=== PATIENT | female | born 1980 | race Two or more races ===

== ENCOUNTER 2020-03-14 10:52 | Inpatient (IN) | payer MEDICAID, OTHER ==
[~2020-03-14] VITALS: Ht 172.7 cm; Wt 80.7 kg
--- NOTE | 2020-03-14 10:57 | NUR ---
[id number] FROM HOME FOR SEIZURE. HX OF SEIZURE. BG 102, TO ER BED 10, HOOKED TO MONITOR, CHANGED TO HOSP GOWN, WARM BLANKET PROVIDED. DR SIBLEY AT BEDSIDE
[2020-03-14 11:32] LABS: BASOPHILS # (AUTO) 0.1 /CMM (0.0-0.2); BASOPHILS % (AUTO) 0.6 % (0.0-2.0); EOSINOPHILS % (AUTO) 0.4 % (0.0-6.0); HEMATOCRIT 43 % (33-45); HEMOGLOBIN 14.5 g/dL (11.5-14.8); LYMPHOCYTES # (AUTO) 0.7 /CMM (0.8-4.8); LYMPHOCYTES % (AUTO) 7.3 % (20.0-44.0); MEAN CORPUSCULAR HGB CONC 34 g/dl (31.0-36.0); MEAN CORPUSCULAR VOLUME 88 fL (82-100); MONOCYTES # (AUTO) 0.4 /CMM (0.1-1.30); MONOCYTES % (AUTO) 4.1 % (2.0-12.0); NEUTROPHILS # (AUTO) 8.5 /CMM (1.8-8.9); NEUTROPHILS % (AUTO) 87.6 % (43.0-81.0); PLATELET COUNT (AUTO) 271 /CMM (150-450); RED BLOOD CELL COUNT(AUTO) 4.91 MIL/uL (4.0-5.2); WHITE BLOOD COUNT (AUTO) 9.7 K/uL (4.3-11.0)
[2020-03-14 11:40] LABS: CALCIUM, SERUM 8.5 mg/dL (8.5-10.1); CREATININE 0.7 mg/dL (0.6-1.3); POTASSIUM 3.7 mmol/L (3.5-5.1)
--- NOTE | 2020-03-14 12:20 | NUR ---
URINE SAMPLE COLLECTED AND SENT TO LAB
--- NOTE | 2020-03-14 12:59 | NUR ---
SEIZURE PRECAUTIONS APPLIED
[2020-03-14] MEDS ORDERED: LORAZEPAM INJ 2 MG/ML VIAL ONE (13:01)
--- NOTE | 2020-03-14 13:01 | NUR ---
PATIENT HAD SEIZURE EPISODE, DR SIBLEY AT BEDSIDE, 1MG ATIVAN IV STAT ORDERED, CARRIED OUT.
--- NOTE | 2020-03-14 13:23 | NUR ---
PICKED UP BY HEATING FIXTURE TENDER FOR CT SCAN
--- NOTE | 2020-03-14 13:26 | NUR ---
CALLED PHARMACY FOR KEPPRA 500MG IVPB.
[2020-03-14] MEDS ORDERED: LEVETIRACETAM (500MG) 500 MG in IV NS 0.9% 100 ML IV ONE (13:30)
[2020-03-14] MEDS ORDERED: LORAZEPAM INJ 2 MG/ML VIAL IV ONE (13:30)
--- NOTE | 2020-03-14 13:35 | NUR ---
CALLED PHARMACY FOR KEPPRA 500MG IVPB
--- NOTE | 2020-03-14 13:42 | NUR ---
GEOTHERMAL SHEET METAL WORKER AT BEDSIDE
[2020-03-14] MEDS ORDERED: LEVE500T20 PO (14:51)
[2020-03-14] MEDS ORDERED: ONDANSETRON HCL/PF 4 MG/2 ML VIAL IV ONE (15:00)
[2020-03-14] MEDS ORDERED: ONDANSETRON HCL/PF 4 MG/2 ML VIAL ONE (15:02)
[2020-03-14] MEDS ORDERED: Z GUARD REMEDY 2 OZ OINT TP PRN (16:00)
[2020-03-14] MEDS ORDERED: HYDROCODONE/APAP 5/325MG TABLET PO PRN (16:00)
[2020-03-14] MEDS ORDERED: MAGNESIUM HYDROXIDE 30 ML UDC PO PRN (16:00)
[2020-03-14] MEDS ORDERED: ACETAMINOPHEN 325 MG TABLET PO PRN (16:00)
[2020-03-14] MEDS ORDERED: ONDANSETRON HCL/PF 4 MG/2 ML VIAL IVP PRN (16:00)
[2020-03-14] MEDS ORDERED: LORAZEPAM INJ 2 MG/ML VIAL IV PRN (16:00)
[2020-03-14] MEDS ORDERED: MAG HYDROX/AL HYDROX/SIMETH 30 ML UDC PO PRN (16:00)
[2020-03-14] MEDS ORDERED: ZOLPIDEM TARTRATE 5 MG TABLET PO PRN (16:00)
--- NOTE | 2020-03-14 16:06 | NUR ---
BED ASSIGNEMNT 309-1
--- NOTE | 2020-03-14 16:13 | NUR ---
report given to Rosemarie HICKS for prabhu
--- NOTE | 2020-03-14 16:50 | NUR ---
pt. brought up to floor from er.hooked up to tele rhythm stach rate of 115.skin warm and dry vs stable. instructed not to get oob.liberian speaking.a little sluggish from meds in er.call luna within reach.
--- NOTE | 2020-03-14 19:30 | NUR ---
CLIENT CARE SPECIALIST OPENING NOTE RECEIVED PATIENT IN BED. A/OX4. TOLERATING ROOM AIR. RESPIRATIONS ARE EVEN AND UNLABORED. NO S/S SOB NOTED. C/O HEADACHE. EXTERNAL TELE MONITOR READ SINUS TACHY 104. IN NO APPARENT DISTRESS. IV ACCESS IN LAC#20 PATENT AND SALINE LOCKED. BED IS LOW AND LOCKED, HOB ELEVATED IN SEMI FOWLERS, SIDE RAILS UP X2, PADDEDD, CALL LIGHT WITHIN REACH. WILL CONTINUE TO MONITOR.
[2020-03-14 20:00] VITALS: BP 116/79
[2020-03-14] MEDS ORDERED: LEVETIRACETAM (250 MG) 250 MG TABLET PO SCH (21:00)
[2020-03-14] MEDS: LEVETIRACETAM (250 MG) 250 MG TABLET PO SCH (22:47)
--- NOTE | 2020-03-14 22:55 | NUR ---
telephone service representative note administered prn tylenol 650mg for c/o headache and request per patient. will continue to monitor.
[2020-03-15] VITALS: BP 109/66
[2020-03-15 04:00] VITALS: BP 116/70
--- NOTE | 2020-03-15 07:30 | NUR ---
TELE/RN OPENING NOTE Received patient awake in bed, A&O x 4. No complaints of pain/discomfort noted. Breathing even and non-labored on RA, no SOB noted. No respiratory or cardiac distress noted. On tele monitor, reading SR 84. IV access noted on RAC #20, patent and intact, and flushing well. Bed locked to its lowest position, side rails x 2 up, call light in hand. Seizure precautions maintained. Will continue with current medical management.
[2020-03-15 08:00] VITALS: BP 105/67
[2020-03-15] MEDS: LEVETIRACETAM (250 MG) 250 MG TABLET PO SCH ×2 (08:16→21:43)
--- NOTE | 2020-03-15 08:56 | NUR ---
PAINTER SUPERVISOR CLOSING NOTE PATIENT RESTING IN BED. A/OX4. REMAINS TOLERATING ROOM AIR. NO RESP DISTRESS. STATES TO STILL HAVE A HEADACHE. EXTERNAL TELE MONITOR READ SINUS TACHY. NO DISTRESS. NO SEIZURE ACTIVITY. IV ACCESS MAINTAINED IN LAC#20 PATENT AND SALINE LOCKED. BED REMAINS LOW AND LOCKED, HOB ELEVATED IN SEMI FOWLERS, SIDE RAILS UP X2, PADDEDD, CALL LIGHT WITHIN REACH. WILL ENDORSE TO NEXT SHIFT.
[2020-03-15 09:52] LABS: BASOPHILS # (AUTO) 0.1 /CMM (0.0-0.2); BASOPHILS % (AUTO) 0.7 % (0.0-2.0); EOSINOPHILS % (AUTO) 0.2 % (0.0-6.0); HEMATOCRIT 40 % (33-45); HEMOGLOBIN 13.6 g/dL (11.5-14.8); LYMPHOCYTES # (AUTO) 1.1 /CMM (0.8-4.8); LYMPHOCYTES % (AUTO) 11.6 % (20.0-44.0); MEAN CORPUSCULAR HGB CONC 34 g/dl (31.0-36.0); MEAN CORPUSCULAR VOLUME 87 fL (82-100); MONOCYTES # (AUTO) 0.9 /CMM (0.1-1.30); MONOCYTES % (AUTO) 9.7 % (2.0-12.0); NEUTROPHILS # (AUTO) 7.4 /CMM (1.8-8.9); NEUTROPHILS % (AUTO) 77.8 % (43.0-81.0); PLATELET COUNT (AUTO) 259 /CMM (150-450); RED BLOOD CELL COUNT(AUTO) 4.63 MIL/uL (4.0-5.2); WHITE BLOOD COUNT (AUTO) 9.5 K/uL (4.3-11.0)
--- NOTE | 2020-03-15 11:00 | NUR ---
MS/RN NOTE Patient appears well, resting in bed. No seizures noted at this time. Will continue to monitor.
[2020-03-15 11:05] LABS: CALCIUM, SERUM 9.2 mg/dL (8.5-10.1); CREATININE 1.1 mg/dL (0.6-1.3); MAGNESIUM 2.7 mg/dL (1.8-2.4); PHOSPHORUS 4.3 mg/dL (2.5-4.9); POTASSIUM 3.3 mmol/L (3.5-5.1)
[2020-03-15 16:00] VITALS: BP 119/68
--- NOTE | 2020-03-15 19:00 | NUR ---
MS/RN CLOSING NOTE Patient resting in bed, A&O x 4. All needs met and attended to. No complaints of pain/discomfort noted. Breathing even and non-labored on RA, no SOB noted. No respiratory or cardiac distress noted. IV access noted on RAC #20, patent and intact, and flushing well. Fall precautions maintained. Seizure precautions maintained. Will endorse to night auditor nurse.
--- NOTE | 2020-03-15 19:30 | NUR ---
MS RN OPENING NOTE RECEIVED PATIENT IN BED. A/OX4. TOLERATING ROOM AIR. RESPIRATIONS ARE EVEN AND UNLABORED. NO S/S SOB NOTED.NO C/O PAIN AT THIS TIME. IN NO APPARENT DISTRESS. IV ACCESS IN LAC#20. BED IS LOW AND LOCKED, HOB ELEVATED IN SEMI FOWLERS, SIDE RAILS UP X2, PADDEDD, CALL LIGHT WITHIN REACH. WILL CONTINUE TO MONITOR.
[2020-03-15 20:00] VITALS: BP 113/74
--- NOTE | 2020-03-16 03:10 | NUR ---
ms rn note photos not taken per protocol, Qsunday. patient has photos taken within 24 hrs. assessed photos and skin, no changes. will continue to monitor.
[2020-03-16 06:34] LABS: BASOPHILS # (AUTO) 0.1 /CMM (0.0-0.2); EOSINOPHILS % (AUTO) 0.4 % (0.0-6.0); HEMATOCRIT 39 % (33-45); HEMOGLOBIN 13.6 g/dL (11.5-14.8); LYMPHOCYTES # (AUTO) 1.7 /CMM (0.8-4.8); LYMPHOCYTES % (AUTO) 22.7 % (20.0-44.0); MEAN CORPUSCULAR HGB CONC 35 g/dl (31.0-36.0); MEAN CORPUSCULAR VOLUME 85 fL (82-100); MONOCYTES # (AUTO) 0.6 /CMM (0.1-1.30); MONOCYTES % (AUTO) 8.3 % (2.0-12.0); NEUTROPHILS # (AUTO) 4.9 /CMM (1.8-8.9); NEUTROPHILS % (AUTO) 67.6 % (43.0-81.0); PLATELET COUNT (AUTO) 272 /CMM (150-450); RED BLOOD CELL COUNT(AUTO) 4.56 MIL/uL (4.0-5.2); WHITE BLOOD COUNT (AUTO) 7.3 K/uL (4.3-11.0)
[2020-03-16 06:48] LABS: CALCIUM, SERUM 8.9 mg/dL (8.5-10.1); CREATININE 0.8 mg/dL (0.6-1.3); POTASSIUM 3.1 mmol/L (3.5-5.1)
[2020-03-16] MEDS ORDERED: LEVE250T2 PO (07:30)
--- NOTE | 2020-03-16 07:30 | NUR ---
MS RN CLOSING NOTE PATIENT RESTING IN BED. A/OX4. REMAINS TOLERATING ROOM AIR.NO RESP DISTRESS. NO PAIN. NO SEIZURE ACTIVITY. IV ACCESS MAINTAINED RAC#20. BED REMAINS LOW AND LOCKED, HOB ELEVATED IN SEMI FOWLERS, SIDE RAILS UP X2, PADDEDD, CALL LIGHT WITHIN REACH. WILL ENDORSE TO NEXT SHIFT
--- NOTE | 2020-03-16 07:30 | NUR ---
MS RN NOTES PATIENT RESTING IN BED, AWAKE, ALERT AND ORIENTED X 4, ON ROOM AIR WITH NO RESP DISTRESS, WITH EVEN NON-LABORED BREATHING, AND NO SOB NOTED. NO PAIN OR ACUTE DISTRESS NOTED. NO SEIZURE ACTIVITY AT THIS TIME. IV ACCESS INTACT AND PATENT ON RAC#20. SAFETY PRECAUTIONS IMPLEMENTED WITH BED IN THE LOWEST AND LOCKED, HOB ELEVATED IN SEMI FOWLERS, SIDE RAILS UP X2, PADDED, CALL LIGHT WITHIN REACH. WILL CONTINUE TO MONITOR.
[2020-03-16 08:00] VITALS: BP 107/61
[2020-03-16] MEDS ORDERED: POTASSIUM CHLORIDE 20 MEQ TAB.PRT.SR PO ONE (08:00)
[2020-03-16] MEDS: LEVETIRACETAM (250 MG) 250 MG TABLET PO SCH (08:36)
[2020-03-16 10:00] VITALS: BP 107/61
--- NOTE | 2020-03-16 12:20 | NUR ---
CASINO CHANGE ATTENDANT NOTE PATIENT ALERT AND ORIENTED X 4, ON ROOM AIR WITH NO RESPIRATORY DISTRESS NOTED WITH EVEN NON-LABORED BREATHING, AND NO SOB. PATIENT SKIN KEPT CLEAN WARM AND DRY TO TOUCH. REMOVED IV ACCESS, CATHETER TIP INTACT AND APPLIED PRESSURE TO SITE. PATIENT ACCOUNTED FOR ALL BELONGINGS. VITAL SIGNS WNL. EXIT CARE PROVIDED TO PATIENT. SKIN ASSESSMENT DONE. PATIENT LEFT HOSPITAL VIA PRIVATE CAR.
== END 2020-03-16 12:20 | disposition home or self-care (01) | DRG 53 ==
LOC: ER 10:59 → TELE 16:12 → MED 03-15 10:28
PROVIDERS: ADMIT Family Medicine; ATTEND Family Medicine
DX: G40.909 Epilepsy, unspecified, not intractable, without status epilepticus (principal); E87.1 Hypo-osmolality and hyponatremia; E87.6 Hypokalemia
CPT/HCPCS: 36415; 70450-TC; 80048-TC; 80061-TC; 83735-TC; 84100-TC; 84703-TC; 85025-TC; 85730-TC; 87081-TC; C9803; G0378; J1953; J2060; J2405; J7030